=== PATIENT | female | born 1955 | race American Indian/Alaskan Native ===

== ENCOUNTER 2017-10-05 10:00 | Inpatient (IN) | payer BC ==
[2017-10-05 10:39] LABS: BILIRUBIN,URINE SMALL (NEG); CLARITY,URINE TURBID; COLOR,URINE YELLOW; GLUCOSE,URINE NEGATIVE (NEG); NITRITE,URINE NEGATIVE (NEG); PH,URINE 5.5; PROTEIN,URINE 100 mg/dL (NEG-TRACE); UROBILINOGEN,URINE 0.2 mg/dL (0.2 mg/dL)
[2017-10-05 10:44] LABS: BACTERIA,URINE MANY /HPF (0-FEW); HYALINE CASTS, URINE FEW /HPF; RBC,URINE FOBS /HPF (0-2); SQUAMOUS EPITHELIAL CELL,UR FEW /LPF; WBC,URINE TNTC /HPF (0-4)
[2017-10-05] MEDS: ONDANSETRON PF 4 MG/2 ML VIAL. IV (10:58)
[2017-10-05] MEDS: IV NORMAL SALINE 1000ML BAG 1,000 ML IV ×2 (10:59→11:58)
[2017-10-05 11:01] LABS: BASO # 0.1 x10^3/uL (0.0-0.2); BASO % 1 % (0-3); EOS % 0 % (0-3); HEMATOCRIT 37.1 % (36.0-47.0); HEMOGLOBIN 12.6 g/dL (12.0-15.5); LYMPH # 0.6 x10^3/uL (1.0-4.8); LYMPH % 3 % (24-48); MEAN CORPUSCULAR HEMOGLOBIN 31 pg (25-35); MEAN CORPUSCULAR HGB CONC 34 g/dL (31-37); MEAN CORPUSCULAR VOLUME 91 fL (79-100); MONO # 1.2 x10^3/uL (0.0-1.1); MONO % 6 % (0-9); NEUT # 16.9 x10^3uL (1.8-7.7); NEUT % 90 % (31-73); PLATELET COUNT 194 x10^3/uL (140-400); RED CELL DISTRIBUTION WIDTH 14.6 % (11.5-14.5); WHITE BLOOD COUNT 18.8 x10^3/uL (4.0-11.0)
[2017-10-05] MEDS: ACETAMINOPHEN 325 MG TABLET. PO ×3 (11:01→21:25)
[2017-10-05 11:14] LABS: ANION GAP 11 (6-14); BLOOD UREA NITROGEN 25 mg/dL (7-20); BUN/CREATININE RATIO 17 (6-20); CALCIUM 8.5 mg/dL (8.5-10.1); CARBON DIOXIDE 26 mmol/L (21-32); CHLORIDE 100 mmol/L (98-107); CREATININE 1.5 mg/dL (0.6-1.0); GFR 35.1; GLUCOSE 114 mg/dL (70-99); POTASSIUM 3.8 mmol/L (3.5-5.1); SODIUM 137 mmol/L (136-145)
[2017-10-05 11:15] LABS: ADD MAN DIFF? YES
[2017-10-05 11:19] LABS: ALBUMIN 3.5 g/dL (3.4-5.0); ALBUMIN/GLOBULIN RATIO 0.7 (1.0-1.7); ALK PHOS 109 U/L (46-116); ALT (SGPT) 22 U/L (14-59); AST (SGOT) 17 U/L (15-37); LIPASE 64 U/L (73-393); TOTAL BILIRUBIN 0.7 mg/dL (0.2-1.0); TOTAL PROTEIN 8.3 g/dL (6.4-8.2)
[2017-10-05 11:46] LABS: % BANDS 19 % (0-9); % LYMPHS 2 % (24-48); % MONOS 7 % (0-10); % SEGS 72 % (35-66)
[2017-10-05 11:47] LABS: PLT ESTIMATE ADEQUATE (ADEQUATE)
[2017-10-05] MEDS: PHENAZOPYRIDINE 200 MG TABLET. PO (11:58)
[2017-10-05] MEDS: fentaNYL PF VIAL 100 MCG/2 ML VIAL IV ×2 (11:59→15:46)
[2017-10-05 12:11] LABS: LACTIC ACID 2.2 mmol/L (0.4-2.0)
[2017-10-05] MEDS ORDERED: ONDANSETRON PF 4 MG/2 ML VIAL. IV (12:30)
[2017-10-05 20:22] LABS: LACTIC ACID 2.9 mmol/L (0.4-2.0)
[2017-10-05 21:57] LABS: POC GLUCOSE 142 mg/dL (70-99)
[2017-10-05] MEDS: ENOXAPARIN 40 MG/0.4 ML SYRINGE. SQ (22:00)
[2017-10-06 05:13] LABS: ADD MAN DIFF? NO
[2017-10-06 05:20] LABS: BASO % 0 % (0-3); EOS # 0.1 x10^3/uL (0.0-0.7); EOS % 1 % (0-3); HEMOGLOBIN 10.5 g/dL (12.0-15.5); LYMPH # 1.6 x10^3/uL (1.0-4.8); LYMPH % 9 % (24-48); MEAN CORPUSCULAR HEMOGLOBIN 31 pg (25-35); MEAN CORPUSCULAR HGB CONC 34 g/dL (31-37); MEAN CORPUSCULAR VOLUME 92 fL (79-100); MONO # 0.9 x10^3/uL (0.0-1.1); MONO % 5 % (0-9); NEUT # 14.6 x10^3uL (1.8-7.7); NEUT % 85 % (31-73); PLATELET COUNT 172 x10^3/uL (140-400); RED BLOOD COUNT 3.36 x10^6/uL (3.50-5.40); RED CELL DISTRIBUTION WIDTH 14.5 % (11.5-14.5); WHITE BLOOD COUNT 17.3 x10^3/uL (4.0-11.0)
[2017-10-06 06:06] LABS: ALBUMIN 2.7 g/dL (3.4-5.0); ALBUMIN/GLOBULIN RATIO 0.7 (1.0-1.7); ALK PHOS 102 U/L (46-116); ALT (SGPT) 24 U/L (14-59); ANION GAP 11 (6-14); AST (SGOT) 22 U/L (15-37); BLOOD UREA NITROGEN 30 mg/dL (7-20); BUN/CREATININE RATIO 18 (6-20); CALCIUM 7.8 mg/dL (8.5-10.1); CARBON DIOXIDE 23 mmol/L (21-32); CHLORIDE 107 mmol/L (98-107); CREATININE 1.7 mg/dL (0.6-1.0); GFR 30.4; GLUCOSE 115 mg/dL (70-99); POTASSIUM 3.8 mmol/L (3.5-5.1); SODIUM 141 mmol/L (136-145); TOTAL BILIRUBIN 0.3 mg/dL (0.2-1.0); TOTAL PROTEIN 6.8 g/dL (6.4-8.2)
[2017-10-06] MEDS: PSYLLIUM HUSK (SUGAR FREE) 1 PKT PACKET PO (07:47)
[2017-10-06] MEDS: fentaNYL PF VIAL 100 MCG/2 ML VIAL IV (07:48)
[2017-10-06] MEDS: ACETAMINOPHEN 325 MG TABLET. PO ×2 (07:58→15:02)
[2017-10-06] MEDS: IV NORMAL SALINE 1000ML BAG 1,000 ML IV ×2 (11:15→20:06)
[2017-10-06] MEDS: cefTRIAXone IV Push 1 GM VIAL. IVP (11:16)
[2017-10-06] MEDS: oxyCODONE/APAP 5/325 1 TAB TABLET PO ×2 (15:59→20:05)
[2017-10-06] MEDS: LACTOBACILLUS RHAMNOSUS GG 1 CAPSULE. PO (20:05)
[2017-10-06 20:53] LABS: POC GLUCOSE 101 mg/dL (70-99)
[2017-10-06] MEDS: ENOXAPARIN 40 MG/0.4 ML SYRINGE. SQ (21:57)
[2017-10-06 22:50] LABS: LACTIC ACID 0.7 mmol/L (0.4-2.0)
[2017-10-07 03:56] LABS: ADD MAN DIFF? NO
[2017-10-07 03:57] LABS: BASO # 0.1 x10^3/uL (0.0-0.2); BASO % 0 % (0-3); EOS # 0.1 x10^3/uL (0.0-0.7); EOS % 1 % (0-3); HEMATOCRIT 27.7 % (36.0-47.0); HEMOGLOBIN 9.5 g/dL (12.0-15.5); LYMPH # 1.3 x10^3/uL (1.0-4.8); LYMPH % 10 % (24-48); MEAN CORPUSCULAR HEMOGLOBIN 31 pg (25-35); MEAN CORPUSCULAR HGB CONC 34 g/dL (31-37); MEAN CORPUSCULAR VOLUME 92 fL (79-100); MONO # 1.2 x10^3/uL (0.0-1.1); MONO % 9 % (0-9); NEUT # 10.2 x10^3uL (1.8-7.7); NEUT % 79 % (31-73); PLATELET COUNT 179 x10^3/uL (140-400); RED BLOOD COUNT 3.03 x10^6/uL (3.50-5.40); WHITE BLOOD COUNT 12.9 x10^3/uL (4.0-11.0)
[2017-10-07 04:15] LABS: ANION GAP 7 (6-14); BLOOD UREA NITROGEN 16 mg/dL (7-20); CARBON DIOXIDE 25 mmol/L (21-32); CHLORIDE 108 mmol/L (98-107); GLUCOSE 115 mg/dL (70-99); POTASSIUM 4.1 mmol/L (3.5-5.1); SODIUM 140 mmol/L (136-145)
[2017-10-07] MEDS: IV NORMAL SALINE 1000ML BAG 1,000 ML IV ×2 (05:28→15:52)
[2017-10-07] MEDS: LACTOBACILLUS RHAMNOSUS GG 1 CAPSULE. PO ×2 (07:36→20:37)
[2017-10-07] MEDS: PSYLLIUM HUSK (SUGAR FREE) 1 PKT PACKET PO (07:37)
[2017-10-07] MEDS: ACETAMINOPHEN 325 MG TABLET. PO ×2 (07:37→15:11)
[2017-10-07 08:28] LABS: POC GLUCOSE 103 mg/dL (70-99)
[2017-10-07] MEDS ORDERED: FLUTICASONE 50MCG/NASAL SPRAY 16GM BOTTLE. NS (09:30)
[2017-10-07] MEDS ORDERED: CETIRIZINE HCL 10 MG TABLET. PO (09:30)
[2017-10-07] MEDS: LOSARTAN POTASSIUM 25 MG TABLET. PO (09:56)
[2017-10-07] MEDS: CALCIUM CARB/VIT D3 500/200 TABLET. PO ×2 (09:57→17:47)
[2017-10-07] MEDS: DULoxetine HCL 30 MG CAPSULE.DR PO (09:57)
[2017-10-07] MEDS: ASPIRIN ENTERIC COATED 81 MG TABLET.DR. PO (09:57)
[2017-10-07] MEDS: ERGOCALCIFEROL (VITAMIN D2) 50,000 UNIT CAPSULE. PO (09:57)
[2017-10-07 11:37] LABS: POC GLUCOSE 130 mg/dL (70-99)
[2017-10-07] MEDS: cefTRIAXone IV Push 1 GM VIAL. IVP (12:04)
[2017-10-07] MEDS: ONDANSETRON PF 4 MG/2 ML VIAL. IV (15:11)
[2017-10-07] MEDS: PANTOPRAZOLE 40 MG TABLET.DR. PO (15:52)
[2017-10-07 16:40] LABS: POC GLUCOSE 115 mg/dL (70-99)
[2017-10-07] MEDS: ENOXAPARIN 40 MG/0.4 ML SYRINGE. SQ (19:24)
[2017-10-07] MEDS: ATORVASTATIN CALCIUM 40 MG TABLET. PO (20:37)
[2017-10-07] MEDS: LATANOPROST 0.005% OPHTH SOLUTION 2.5ML BOTTLE. OU (20:37)
[2017-10-07 20:57] LABS: POC GLUCOSE 99 mg/dL (70-99)
[2017-10-07] MEDS ORDERED: RANITIDINE HCL PO (21:00)
[2017-10-07] MEDS ORDERED: LATANOPROST EACHEYE (21:00)
[2017-10-08] MEDS: IV NORMAL SALINE 1000ML BAG 1,000 ML IV ×2 (01:24→12:00)
[2017-10-08 07:42] LABS: POC GLUCOSE 115 mg/dL (70-99)
[2017-10-08] MEDS: LACTOBACILLUS RHAMNOSUS GG 1 CAPSULE. PO (08:36)
[2017-10-08] MEDS: ASPIRIN ENTERIC COATED 81 MG TABLET.DR. PO (08:36)
[2017-10-08] MEDS: PANTOPRAZOLE 40 MG TABLET.DR. PO (08:36)
[2017-10-08] MEDS: DULoxetine HCL 30 MG CAPSULE.DR PO (08:36)
[2017-10-08] MEDS: PSYLLIUM HUSK (SUGAR FREE) 1 PKT PACKET PO (08:36)
[2017-10-08] MEDS: CALCIUM CARB/VIT D3 500/200 TABLET. PO (08:36)
[2017-10-08] MEDS: LOSARTAN POTASSIUM 25 MG TABLET. PO (08:36)
[2017-10-08] MEDS: cefTRIAXone IV Push 1 GM VIAL. IVP (09:57)
[2017-10-08 11:40] LABS: POC GLUCOSE 113 mg/dL (70-99)
== END 2017-10-08 14:00 | disposition home or self-care (01) | DRG 871 ==
LOC: ER 10:00 → 5 NORTH 12:21
DX: A41.9 Sepsis, unspecified organism (principal); N17.0 Acute kidney failure with tubular necrosis; N10 Acute pyelonephritis; B96.20 Unspecified Escherichia coli [E. coli] as the cause of diseases classified elsewhere; E66.9 Obesity, unspecified; I10 Essential (primary) hypertension; K21.9 Gastro-esophageal reflux disease without esophagitis; M46.90 Unspecified inflammatory spondylopathy, site unspecified; R31.29 Other microscopic hematuria; F41.9 Anxiety disorder, unspecified; M19.90 Unspecified osteoarthritis, unspecified site; M54.5 Low back pain; Z16.11 Resistance to penicillins; Z68.30 Body mass index [BMI] 30.0-30.9, adult; Z80.51 Family history of malignant neoplasm of kidney; Z82.49 Family history of ischemic heart disease and other diseases of the circulatory system; Z87.440 Personal history of urinary (tract) infections; Z87.891 Personal history of nicotine dependence; Z83.3 Family history of diabetes mellitus
CPT/HCPCS: 36415; 74176; 80048; 80053; 81001; 82962; 83605; 83690; 85007; 85025; 87040; 87086; 87186; 87205; 96360; 97161-GP; 97165-GO; 99285; 99285-25; J0690; J0696; J2405; J3010; J7030

== ENCOUNTER → 2019-06-07 | Outpatient (CLI) | payer BC, OTHER ==
[2017-10-08 10:45] VITALS: BP 123/70
[~2019-06-07] MED LIST: ASPI-612 PO; ATOR40TA59 PO; BARIUM SULFATE 340 GM SUSPENSION. PO ONE; BARIUM SULFATE 60% 355 ML SUSP PO ONE; BIMA2.5D EACHEYE; CALC1CAP7 PO; CETI10TA16 PO; CIPR500T94 PO; DULO30CA2 PO; ERGO500027 PO; FLUT16SP NS; IRBE75TA3 PO; LACT1CAP19 PO; LATA2.5D2 EACHEYE; MELO7.5T29 PO; OMEP40CA45 PO; RANI150T2 PO; SIMETHICONE/SOD BICARB/CITRIC ACID PACKET. PO ONE; WHEA1POW8 PO
--- NOTE | 2019-06-07 09:56 | RAD ---
EXAM: DOUBLE CONTRAST UPPER GI SERIES. HISTORY: Upper abdominal pain, cough. COMPARISON: None. FINDINGS: A clinical program director radiograph was obtained. Barium contrast material was administered orally and followed in its course through the esophagus, gastroesophageal junction, stomach, pylorus and proximal small bowel with fluoroscopy. Effervescent crystals were administered for air double contrast. Fluoroscopy time 2.7 minutes. 24 fluoroscopic series were obtained. The pharynx appeared normal in morphology. The swallowing apparatus functioned normally. A calcific density in the submandibular region suggests a large sialolith measuring 8 mm. There is a small Schatzki ring just proximal to the gastroesophageal junction as best seen on series #23. No esophageal ulcers or fixed stricture is identified. Motility appeared normal. The gastroesophageal junction within its expected position. It opened promptly. Gastroesophageal reflux was visualized while supine. Gastric morphology and mucosal pattern appears normal. The pylorus opened promptly. There is a small duodenal diverticulum along the second/third portion. IMPRESSION: 1. Gastroesophageal reflux while supine. 2. Small Schatzki ring just proximal to the gastroesophageal junction. Endoscopy is more sensitive for mucosal lesions if there is persistent concern. 3. Correlate for a large 8 mm sialolith versus a calcified lymph node in the right submandibular region. CT of the neck soft tissues could further evaluate if there is persistent concern. Electronically signed by: Hank Faye MD (06/07/2019 9:53 AM) [facility]
== END | disposition home or self-care (01) ==
LOC: RAD 08:04
PROVIDERS: ATTEND Family Medicine
DX: K57.10 Diverticulosis of small intestine without perforation or abscess without bleeding (principal); K22.2 Esophageal obstruction; K21.9 Gastro-esophageal reflux disease without esophagitis
CPT/HCPCS: 74246

== ENCOUNTER → 2019-10-13 | Outpatient (CLI) | payer BC, MEDICARE, OTHER ==
[2017-10-08 10:45] VITALS: BP 123/70
[~2019-10-13] MED LIST changes: -BARIUM SULFATE 340 GM SUSPENSION. PO ONE; -BARIUM SULFATE 60% 355 ML SUSP PO ONE; +IRBE75TA16 PO; -IRBE75TA3 PO; -SIMETHICONE/SOD BICARB/CITRIC ACID PACKET. PO ONE
--- NOTE | 2019-10-13 13:04 | RAD ---
EXAM: ABDOMINAL ULTRASOUND, limited. HISTORY: 10/13/2019. COMPARISON: Noncontrast abdomen pelvis CT of 10/05/2017. FINDINGS: Sonographic evaluation of the right upper quadrant abdomen was performed. The liver appears normal in parenchymal echotexture. There are numerous simple hepatic cysts correlating with the hypodense lesions on CT. These include a 2.2 x 1.9 x 1.5 cm subcapsular medial segment 2 lesion, a 1.4 cm subcapsular lesion in hepatic segment 3, a subcapsular segment 7 lesion measuring 3.0 x 3.6 x 2.4 cm, and a segment 4A lesion measuring 1.5 x 2.4 x 1.8 cm. No solid liver masses are identified on ultrasound. Patent normal directional flow in the main portal vein. The gallbladder is unremarkable without evidence of stones, wall thickening or pericholecystic fluid. There is no sonographic Ryan sign. The common duct measures 2 mm. The visualized portions of the head of the pancreas reveal no abnormality. The right kidney measures 9.4 x 4.8 x 4.0 cm. Cortical thickness and echogenicity are preserved. There is no hydronephrosis. IMPRESSION: 1. Numerous sonographically benign-appearing hepatic cysts. 2. Otherwise unremarkable right upper quadrant abdominal ultrasound. Electronically signed by: Whitney Cesar MD (10/13/2019 1:01 PM) [id number]
== END ==
LOC: US 09:50
PROVIDERS: ATTEND Family Medicine
DX: K76.89 Other specified diseases of liver (principal)
CPT/HCPCS: 76700